=== PATIENT | female | born 1935 | race Caucasian/White ===

== ENCOUNTER 2016-05-19 09:41 | Emergency (ER) | payer MEDICARE, BC ==
[2016-05-19 10:00] VITALS: BP 111/79
--- NOTE | 2016-05-19 10:10 | UC ---
Respiratory Complaint HPI - HPI Summary HPI Summary: 80 yo female with productive cough for 1-2 weeks no fever or chills saw her PMD on or Friday and started on amox seemed to improved but last pm was up all night coughing - History of Current Complaint Chief Complaint: UCGeneralIllness Stated Complaint: COUGH HURTS TO TAKE DEEP BREATH Time Seen by Provider: 05/19/16 09:57 Hx Obtained From: Patient Onset/Duration: Sudden Onset, Lasting Weeks Timing: Constant Severity Initially: Mild Severity Currently: Moderate Pain Intensity: 2 Pain Scale Used: 0-10 Numeric Character: Cough: Productive Aggravating Factors: Deep Breaths, Recumbent Position Alleviating Factors: Nothing Associated Signs And Symptoms: Positive: Wheezing. Negative: Nasal Congestion, Hoarseness - Allergies/Home Medications Allergies/Adverse Reactions: Allergies Allergy/AdvReac Type Severity Reaction Status Date / Time No Known Allergies Allergy Verified 10/05/14 07:24 Home Medications: Home Medications Amoxicillin CAP* 05/19/16 [History] Benzonatate CAP* [Tessalon CAP*] 05/19/16 [History] PMH/Surg Hx/FS Hx/Imm Hx Previously Healthy: Yes Respiratory History Of: Denies: Asthma, Pneumonia Cancer History Of: Denies: Breast Cancer - Surgical History Surgical History: Yes Surgery Procedure, Year, and Place: HERNIA REPAIR-11/2010. tubal ligation- 1963. hemorrhoidectomy - Family History Known Family History: Positive: Hypertension Negative: Respiratory Disease - Social History Alcohol Use: None Substance Use Type: None Smoking Status (MU): Never Smoked Tobacco Have You Smoked in the Last Year: No - Immunization History Most Recent Influenza Vaccination: NA Most Recent Pneumonia Vaccination: 67 years old Review of Systems Constitutional: Negative Skin: Negative Eyes: Negative ENT: Negative Respiratory: Cough Cardiovascular: Negative Gastrointestinal: Negative Genitourinary: Negative Motor: Negative Neurovascular: Negative Musculoskeletal: Negative Neurological: Negative Psychological: Negative All Other Systems Reviewed And Are Negative: Yes Physical Exam Triage Information Reviewed: Yes Appearance: Well-Appearing, No Pain Distress, Well-Nourished Vital Signs: Initial Vital Signs Temp 98.4 F 05/19/16 09:50 Pulse 80 05/19/16 09:50 Resp 20 05/19/16 09:50 BP 111/79 05/19/16 09:50 Pulse Ox 97 05/19/16 09:50 Eyes: Positive: Conjunctiva Clear ENT: Positive: Hearing grossly normal. Negative: Nasal congestion, Nasal drainage, Tonsillar exudate, Trismus, Muffled/hoarse voice Neck: Positive: Supple, Nontender Respiratory: Positive: Lungs clear, No respiratory distress, No accessory muscle use, Other: - kypho-scoliosis Cardiovascular: Positive: RRR, No Murmur Musculoskeletal: Positive: ROM Intact Neurological Exam: Normal Neurological: Positive: Alert Psychological Exam: Normal Skin Exam: Normal UC Diagnostic Evaluation - Laboratory O2 Sat by Pulse Oximetry: 97 - normal/not hypoxic Respiratory Course/Dx - Course Course Of Treatment: declines taking prednisone - Differential Dx/Diagnosis Provider Diagnoses: acute bronchitis Discharge - Discharge Plan Condition: Stable Disposition: HOME Patient Education Materials: Acute Bronchitis (ED) Referrals: Kush Daly MD [Primary Care Provider] - 2 Days (if not better) Additional Instructions: continue current meds use inhaler as directed
--- NOTE | 2016-05-19 10:31 | RAD ---
HISTORY: Productive cough COMPARISONS: None VIEWS: 2: Frontal dual-energy and lateral views of the chest. FINDINGS: CARDIOMEDIASTINAL SILHOUETTE: The cardiomediastinal silhouette is normal. ESCOBAR: The escobar are normal. PLEURA: The costophrenic angles are sharp. No pleural abnormalities are noted. LUNG PARENCHYMA: There is hyperinflation with flattening of the diaphragm and expansion of the AP diameter of the chest. ABDOMEN: The upper abdomen is clear. There is no subphrenic gas. BONES AND SOFT TISSUES: Degenerative changes are noted of the spine OTHER: None. IMPRESSION: HYPERINFLATION, CONSISTENT WITH COPD. NO ACTIVE CARDIOPULMONARY DISEASE.
[2016-05-19] MEDS ORDERED: Albuterol HFA INHALER* 8 gm MDI INH ONE (10:52)
== END 2016-05-19 11:13 | disposition home or self-care (01) ==
LOC: UCEAST 09:41
DX: J20.9 Acute bronchitis, unspecified (principal)
CPT/HCPCS: 71020; 99212; A9270-GY; G0463

== ENCOUNTER 2016-09-23 08:04 | Emergency (ER) | payer MEDICARE, BC ==
[2016-09-23 08:13] VITALS: BP 125/70
--- NOTE | 2016-09-23 08:41 | UC ---
Zaina Lam Claudia, scribed for Emilio Bansal MD on 09/23/16 at 0829 . Skin Complaint HPI - HPI Summary HPI Summary: 81 year old female presents to the [facility] with a rash to her face, chest and arms. She describes the pain as an itching/burning. Pt notes that she became in contact with [facility] [place] on and has had Sx since Friday am. Pt notes that she did not realize that she was near it but when she did she went inside and carefully cleaned/washed up. She denies any associated Sx of SOB, throat tightening, wheezing, abd pain, CP. She notes that she has been applying a topical Benadryl anti-itch cream which she thinks has been aggravating her Sx. She notes that calamine lotion seems to alleviate it for some time. Pt denies any PMHx of Ulcers, as well as taking prednisone in the past. - History of Current Complaint Chief Complaint: UCRash Time Seen by Provider: 09/23/16 08:17 Stated Complaint: RASH Hx Obtained From: Patient Onset/Duration: Sudden Onset, Still Present Skin Exposure Onset/Duration: Days Ago Location: Face, Other - CHEST Aggravating: Other - BENADRYL ANTI-ITCH Alleviating: Nothing Associated Signs & Symptoms: Positive: Rash. Negative: Difficulty Breathing, Wheezing, Chest Pain, Throat Tightening - Allergy/Home Medications Allergies/Adverse Reactions: Allergies Allergy/AdvReac Type Severity Reaction Status Date / Time Meperidine [From Demerol HCl] Allergy Nausea And Verified 09/23/16 08:14 Vomiting Home Medications: Home Medications Cholecalciferol [Vitamin D] 1,000 unit PO 09/23/16 [History] Xemjknutncj-Rnoibbhbzoj-Nqq C- [Glucosamine Chondroitin] 1 tab PO 09/23/16 [ History] Review of Systems Constitutional: Negative Skin: Rash Eyes: Negative ENT: Negative Respiratory: Negative - NO SOB, NO WHEEZING Cardiovascular: Negative - NO CP Gastrointestinal: Negative - NO ABD PAIN Genitourinary: Negative Motor: Negative Neurovascular: Negative Musculoskeletal: Negative Neurological: Negative Psychological: Negative All Other Systems Reviewed And Are Negative: Yes PMH/Surg Hx/FS Hx/Imm Hx Previously Healthy: Yes - Surgical History Surgical History: None Surgery Procedure, Year, and Place: HERNIA REPAIR-11/2010. tubal ligation- 1963. hemorrhoidectomy - Family History Known Family History: Positive: Hypertension Negative: Respiratory Disease - Social History Occupation: Retired Lives: With Family Alcohol Use: Weekly Substance Use Type: None Smoking Status (MU): Never Smoked Tobacco Have You Smoked in the Last Year: No - Immunization History Most Recent Influenza Vaccination: NA Most Recent Pneumonia Vaccination: 67 years old Physical Exam Triage Information Reviewed: Yes Appearance: Well-Appearing, No Pain Distress, Well-Nourished Vital Signs: Initial Vital Signs Temp 96.8 F 09/23/16 08:08 Pulse 90 09/23/16 08:08 Resp 18 09/23/16 08:08 BP 125/70 09/23/16 08:08 Pulse Ox 97 09/23/16 08:08 Vital Signs Reviewed: Yes Eyes: Positive: Conjunctiva Clear ENT: Positive: Normal ENT inspection, Hearing grossly normal, Pharynx normal Neck: Positive: Supple, Nontender, No Lymphadenopathy Respiratory: Positive: Chest non-tender, Lungs clear, Normal breath sounds Cardiovascular: Positive: RRR, No Murmur, Pulses Normal Skin: Positive: rashes - maculopapulary rash with few visicules located on bilateral arms, hands, upper ches, and face Course/Dx - Diagnoses Provider Diagnoses: contact dematitis Discharge - Discharge Plan Condition: Stable Disposition: HOME Prescriptions: Prednisone 20 mg PO BID #10 tab Triamcinolone 0.1% CREAM (NF) [Kenalog 0.1% Cream (NF)] 1 applic .SEE ORDER BID #60 gm Patient Education Materials: Prednisone (By mouth), Contact Dermatitis (ED) Referrals: Kush Daly MD [Primary Care Provider] - The documentation as recorded by the Zaina godfrey Claudia accurately reflects the service I personally performed and the decisions made by , Emilio Bansal MD.
== END 2016-09-23 08:45 | disposition home or self-care (01) ==
LOC: UCEAST 08:04
DX: L25.9 Unspecified contact dermatitis, unspecified cause (principal)
CPT/HCPCS: 99212; G0463

== ENCOUNTER 2018-05-27 08:22 | Emergency (ER) | payer MEDICARE, BC ==
[2018-05-27 08:37] VITALS: BP 119/72
--- NOTE | 2018-05-27 10:42 | UC ---
Respiratory Complaint HPI - HPI Summary HPI Summary: 3 DAYS OF COUGH, CONGESTION. NO FEVER, N/V. LUNGS FEELS RATTLY. SICK AT HOME. - History of Current Complaint Chief Complaint: UCRespiratory Stated Complaint: CHEST CONGESTION COUGH Time Seen by Provider: 05/27/18 09:33 Hx Obtained From: Patient Onset/Duration: Gradual Onset, Lasting Days, Still Present Timing: Constant Severity Initially: Mild Severity Currently: Mild Pain Intensity: 3 Pain Scale Used: 0-10 Numeric Character: Cough: Nonproductive Aggravating Factors: Nothing Alleviating Factors: Nothing Associated Signs And Symptoms: Positive: URI, Nasal Congestion. Negative: Dyspnea, Fever, Chills, Wheezing - Allergies/Home Medications Allergies/Adverse Reactions: Allergies Allergy/AdvReac Type Severity Reaction Status Date / Time meperidine [From Demerol] Allergy Nausea And Verified 05/27/18 08:30 Vomiting PMH/Surg Hx/FS Hx/Imm Hx - Additional Past Medical History Additional PMH: ECZEMA, ALLERGIES - Surgical History Surgical History: None Surgery Procedure, Year, and Place: HERNIA REPAIR-11/2010. tubal ligation- 1963. hemorrhoidectomy - Family History Known Family History: Positive: Hypertension Negative: Respiratory Disease - Social History Alcohol Use: Occasionally Substance Use Type: None Smoking Status (MU): Never Smoked Tobacco Have You Smoked in the Last Year: No - Immunization History Most Recent Influenza Vaccination: NA Most Recent Pneumonia Vaccination: 67 years old Review of Systems All Other Systems Reviewed And Are Negative: Yes Constitutional: Positive: Negative ENT: Positive: Nasal Discharge Respiratory: Positive: Cough Cardiovascular: Positive: Negative Gastrointestinal: Positive: Negative Physical Exam Triage Information Reviewed: Yes Appearance: Well-Appearing, No Pain Distress, Well-Nourished Vital Signs: Initial Vital Signs Temp 98.2 F 05/27/18 08:32 Pulse 90 05/27/18 08:32 Resp 17 05/27/18 08:32 BP 119/72 05/27/18 08:32 Pulse Ox 96 05/27/18 08:32 Vital Signs Reviewed: Yes Eyes: Positive: Conjunctiva Clear ENT: Positive: Hearing grossly normal, Pharynx normal, Nasal drainage Neck: Positive: Supple, Nontender, No Lymphadenopathy Respiratory Exam: Normal Cardiovascular Exam: Normal Abdomen Description: Positive: Soft Musculoskeletal: Positive: No Edema Neurological: Positive: Alert Psychological: Positive: Age Appropriate Behavior Skin: Negative: Rashes UC Diagnostic Evaluation - Laboratory O2 Sat by Pulse Oximetry: 96 Respiratory Course/Dx - Differential Dx/Diagnosis Provider Diagnosis: Acute bronchitis Discharge - Sign-Out/Discharge Documenting (check all that apply): Patient Departure All imaging exams completed and their final reports reviewed: No Studies - Discharge Plan Condition: Stable Disposition: HOME Prescriptions: Azithromycin 500 mg PO DAILY #5 tab Patient Education Materials: Acute Bronchitis (ED) Referrals: Meghan Camara MD [Medical Doctor] - If Needed Additional Instructions: YOUR SYMPTOMS MAY BE VIRALLY MEDIATED BUT GIVEN YOUR SICK CONTACTS AT HOME WE WILL COVER YOU WITH ANTIBIOTICS. IF YOU START THE MEDICINE BE SURE TO TAKE IT FOR THE FULL COURSE. REST, HYDRATE, OTC MEDS NEEDED. SEEK FOLLOW-UP WITH YOUR PCP IF YOU ARE NOT IMPROVING OVER THE NEXT 1-2 WEEKS. - Billing Disposition and Condition Condition: STABLE Disposition: Home
== END 2018-05-27 10:02 | disposition home or self-care (01) ==
LOC: UCEAST 08:22
DX: J20.9 Acute bronchitis, unspecified (principal); Z88.5 Allergy status to narcotic agent
CPT/HCPCS: 99212; G0463

== ENCOUNTER 2018-10-12 07:55 | Emergency (ER) | payer MEDICARE, BC ==
[2018-10-12] MEDS ORDERED: Lidocaine 1% MPF ** 5 ML VIAL INJ ONE (09:34)
--- NOTE | 2018-10-12 09:41 | UC ---
Knee Pain HPI - HPI Summary HPI Summary: Ms. Kelsey started having increased pain in her right knee to 3 days ago. It's dramatically worse today. She does have arthritis in the knee and has chronic pain. She had a small red spot distally on her lo a week or so ago and she is concerned that this might be Lyme disease. She also has some stiffness in her neck and right shoulder on and off. - History of Current Complaint Chief Complaint: UCLowerExtremity Stated Complaint: POSS LYME Time Seen by Provider: 10/12/18 08:05 Hx Obtained From: Patient Onset/Duration: Gradual Onset, Lasting Days Severity Initially: Mild Severity Currently: Moderate Pain Intensity: 6 Character: Sharp, Aching Aggravating Factor(s): Movement, Weight Bearing, Prolonged Standing, Stairs Alleviating Factor(s): Rest Associated Signs And Symptoms: Positive: Swelling Able to Bear Weight: Yes - Allergies/Home Medications Allergies/Adverse Reactions: Allergies Allergy/AdvReac Type Severity Reaction Status Date / Time meperidine [From Demerol] Allergy Nausea And Verified 10/12/18 08:11 Vomiting Home Medications: Home Medications Blue Emu Cream 1 applic TOPICAL ONCE PRN 10/12/18 [History Confirmed 10/12/18] Ibuprofen [Advil] 400 mg PO ONCE PRN 10/12/18 [History Confirmed 10/12/18] Lidocaine HCl [Aspercreme] 1 applic TOPICAL ONCE PRN 10/12/18 [History Confirmed 10/12/18] Methyl Salicylate/Menth/Camph [Bengay Ultra Strength Cream] 1 applic TOPICAL ONCE PRN 10/12/18 [History Confirmed 10/12/18] PMH/Surg Hx/FS Hx/Imm Hx Previously Healthy: Yes - Surgical History Surgical History: Yes Surgery Procedure, Year, and Place: HERNIA REPAIR-11/2010. tubal ligation- 1963. hemorrhoidectomy - Family History Known Family History: Positive: Hypertension Negative: Respiratory Disease - Social History Alcohol Use: Occasionally Substance Use Type: None Smoking Status (MU): Never Smoked Tobacco Have You Smoked in the Last Year: No - Immunization History Most Recent Influenza Vaccination: NA Most Recent Pneumonia Vaccination: 67 years old Review of Systems All Other Systems Reviewed And Are Negative: Yes Constitutional: Positive: Negative Skin: Positive: Rash Eyes: Positive: Negative Respiratory: Positive: Negative Cardiovascular: Positive: Negative. Negative: Palpitations Motor: Positive: Decreased ROM Neurovascular: Positive: Negative Musculoskeletal: Positive: Decreased ROM Neurological: Positive: Negative Physical Exam - Summary Physical Exam Summary: She is nontoxic in appearance with stable vital signs. She walks with an antalgic gait. Triage Information Reviewed: Yes Appearance: Well-Appearing, Pain Distress Vital Signs: Initial Vital Signs Temp 98.7 F 10/12/18 08:03 Pulse 88 10/12/18 08:03 Resp 18 10/12/18 08:03 BP 135/77 10/12/18 08:03 Pulse Ox 97 10/12/18 08:03 Vital Signs Reviewed: Yes Eye Exam: Normal Neck exam: Normal Neck: Positive: Nontender Respiratory: Positive: Lungs clear Cardiovascular: Positive: RRR Abdomen Description: Positive: Nontender Musculoskeletal Exam: Other - Her right knee is mildly swollen. It's tender to any attempt to flex and extend. Her patella ballottes Neurological Exam: Normal Skin Exam: Normal Procedures - Procedure Summary Procedure Summary: Right knee arthrocentesis. Her right knee was prepped and draped, anesthetized with 1% lidocaine and an 18- gauge needle was used to withdraw approximately 40 cc of dark yellow slightly cloudy fluid. She tolerated the procedure well and was dressed. Diagnostics - Radiology right knee Radiology Interpretation Completed By: Radiologist Summary of Radiographic Findings: Is a lot of arthritis in her knee and a joint effusion. Knee Pain Course/Dx - Course Course Of Treatment: Ms. Kelsey came in with a right knee effusion over couple days. Blood tests have been sent including tick PCR's. She has a lot of arthritis and this is likely an inflammatory effusion however I did tap her joint to sent to the lab to rule out a septic knee. She will follow-up with Dr. Camara and we should have results tomorrow. - Differential Dx/Diagnosis Provider Diagnosis: Effusion, right knee Discharge - Sign-Out/Discharge Documenting (check all that apply): Patient Departure All imaging exams completed and their final reports reviewed: Yes - Discharge Plan Condition: Stable Disposition: HOME Patient Education Materials: Swollen Knee Joint (ED) Referrals: Meghan Camara MD [Primary Care Provider] - - Billing Disposition and Condition Condition: STABLE Disposition: Home
[2018-10-12 10:20] VITALS: BP 135/63
[2018-10-12 12:53] LABS: ABS Eosinophils 0.2 10^3/ul (0-0.6); ABS Lymphocytes 0.8 10^3/ul (1.0-4.8); ABS Monocytes 0.7 10^3/ul (0-0.8); ABS Neutrophils 5.2 10^3/ul (1.5-7.7); Eosinophil % 2.6 %; Hematocrit 45 % (35-47); Hemoglobin 15.3 g/dL (12.0-16.0); Lymphocyte % 11.6 %; Mean Corpuscular HGB Conc 35 g/dL (31-36); Mean Corpuscular Hemoglobin 31 pg (27-31); Mean Corpuscular Volume 90 fL (80-97); Mean Platelet Volume 8.9 fL (7.4-10.4); Nucleated Red Blood Cells % 0.1; Platelet Count 240 10^3/uL (150-450); Red Blood Count 4.93 10^6 /uL (3.70-4.87); Red Cell Distribution Width 14 % (10-15); White Blood Count 6.9 10^3/uL (3.5-10.8)
[2018-10-12 13:14] LABS: Albumin 3.8 g/dL (3.2-5.2); Albumin/Globulin Ratio 1.6 (1-3); BUN/Creatinine Ratio 11.5 (8-20); Calcium 9.1 mg/dL (8.6-10.3); EGFR African American 113.9 (>60); EGFR Non-African American 94.1 (>60); Globulin 2.4 g/dL (2-4); Potassium 4.3 mmol/L (3.5-5.0); Total Bilirubin 0.6 mg/dL (0.2-1.0); Total Protein 6.2 g/dL (6.4-8.9)
[2018-10-12 13:24] LABS: Body Fluid Source Synovial Fluid
[2018-10-12 16:38] LABS: Body Fluid Mono 80 %
[2018-10-14 00:19] LABS: Anaplasma phagocytophilum Negative (Negative); B garinii/B afzelii PCR Negative (Negative); B mayonii PCR Negative (Negative); B. miyamotoi PCR, B Negative (Negative); Babesia divergens/MO-1 Negative (Negative); Babesia ducani Negative (Negative); Ehrlichia chaffeensis Negative (Negative); Ehrlichia ewingii/canis Negative (Negative); Ehrlichia muris eauclairensis Negative (Negative)
--- NOTE | 2018-10-14 07:49 | UC ---
- Progress Note Progress Note: [place] ILLNESS PANEL NEGATIVE. JOINT FLUID SO FAR WITH NO GROWTH. NO CHANGE IN MANAGEMENT. Course/Dx - Diagnoses Provider Diagnoses: Effusion, right knee Discharge - Sign-Out/Discharge Documenting (check all that apply): Post-Discharge Follow Up All imaging exams completed and their final reports reviewed: Yes - Discharge Plan Condition: Improved Disposition: HOME Patient Education Materials: Swollen Knee Joint (ED) Referrals: Meghan Caamra MD [Primary Care Provider] - - Billing Disposition and Condition Condition: IMPROVED Disposition: Home
== END 2018-10-12 10:22 | disposition home or self-care (01) ==
LOC: UCEAST 07:55
DX: M25.461 Effusion, right knee (principal)
CPT/HCPCS: 20605; 36415; 80053; 85025; 87070; 87205; 87476; 87640; 87641; 87798; 89051; 99211; G0463